=== PATIENT | female | born 1990 | race Caucasian/White ===

== ENCOUNTER 2025-05-19 11:26 | Emergency (ER) | payer OTHER, SELFPAY ==
[2025-05-19 11:38] VITALS: BP 118/75; PULSE 84; RESP 18; TEMP 36.4; O2SAT 99
--- NOTE | 2025-05-19 11:52 | ED.EAR ---
HPI - Ear Problem General Chief complaint: Ear Stated complaint: right ear pain Time Seen by Provider: 05/19/25 11:29 Source: patient Mode of arrival: ambulatory Limitations: no limitations History of Present Illness HPI Narrative: Maura is a 34-year-old female patient presenting to the clinic today with complaints of bilateral ear pain right greater than left x1 month. Does have some nasal congestion that started this morning. Denies any fevers, chills, body aches. States has a sharp pain in her right ear intermittently. Reports intermittent dizziness. Not currently feeling dizzy. Denies any drainage coming from the ear or any recent swimming. No headaches or visual changes. Denies any ringing in her ears. Related Data Home Medications ?Medication ?Instructions ?Recorded ?Confirmed ?Last Taken ?Type drospirenone 3 mg-ethinyl 1 tablet PO DAILY 05/19/25 Unknown History estradiol 0.02 mg tablet (BRENNAN (28)) naproxen 500 mg tablet (Naprosyn) 250 mg PO DAILY 05/19/25 Unknown History Allergies Allergy/AdvReac Type Severity Reaction Status Date / Time bingham AdvReac Mild Headache Verified 05/19/25 11:39 Review of Systems Review of Systems: Pertinent positives per HPI. Patient denies any fever, chills, rash, headache, visual changes, cough, runny nose, sore throat, shortness of breath, chest pain, palpitations, nausea, vomiting, diarrhea, constipation, abdominal pain, or any urinary issues. PMFSH Comments At the time of my signature, I reviewed and agree with the nursing past medical, surgical, social, and family history. There is no relevant family history pertinent to the patient complaint. Exam Narrative: General: Well-developed, well nourished, in no apparent distress Head: Normocephalic, atraumatic Eyes: Pupils equally round and reactive to light bilaterally, EOM intact, sclera and conjunctive clear, no discharge, lids normal, without nystagmus Ears: TMs intact and mildly congested, very scant amount of cerumen otherwise ear canals clear, no drainage, grossly hearing normal. Nose: Nares patent, clear discharge, no inflammation, no sinus tenderness. Mouth: Oropharynx without lesions or masses, good dentition, MMM. Neck: Supple, trachea midline, no enlargement of anterior or posterior cervical nodes, no thyroid masses or goiter palpable. Cardio: Regular rate and rhythm, s1 and s2 normal, no murmur appreciated. Resp: Clear to auscultation bilaterally anteriorly and posteriorly, no rhonchi, rales, wheezing or rubs Course Course Emergency Course: Portions of this record may have been created with voice recognition software. Level of Care: Express Care Visit Vital Signs Vital signs: Vital Signs Temperature 36.4 C 05/19/25 11:38 Pulse Rate 84 05/19/25 11:38 Respiratory Rate 18 05/19/25 11:38 Blood Pressure 118/75 05/19/25 11:38 Pulse Oximetry 99 05/19/25 11:38 Oxygen Delivery Room Air 05/19/25 11:38 Temperature 36.4 C 05/19/25 11:38 Pulse Rate 84 05/19/25 11:38 Respiratory Rate 18 05/19/25 11:38 Blood Pressure 118/75 05/19/25 11:38 Pulse Oximetry 99 05/19/25 11:38 Oxygen Delivery Room Air 05/19/25 11:38 Vital signs reviewed Medical Decision Making MDM Narrative Medical decision making narrative: At the time of visit patient is resting comfortably on the exam table. Patient appears to be nontoxic. Complaints of bilateral ear pain right greater than left x1 month. Does have some nasal congestion that started this morning. Denies any fevers, chills, body aches. States has a sharp pain in her right ear intermittently. Reports intermittent dizziness. Not currently feeling dizzy. Denies any drainage coming from the ear or any recent swimming. No headaches or visual changes. Denies any ringing in her ears. On exam patient has slight scant amount of cerumen and bilateral ear canals otherwise clear, no drainage, TMs intact with mild congestion without bulging. No nystagmus on exam Plan: I suspect patient has otalgia with mild ear congestion. Recommend trying Flonase and iije-oyz-bqxltoy antihistamine such as Zyrtec or Claritin daily for congestion. Supportive measures were discussed with the patient and they voiced understanding discharge instructions and agrees to treatment plan. Return precautions reviewed Differential Diagnosis Differential Diagnosis: Otitis media, otitis externa, eustachian tube dysfunction, Meniere's disease, BPPV, URI, sinusitis, cerumen impaction Vital Signs Vital Signs: Vital Signs Temperature 36.4 C 05/19/25 11:38 Pulse Rate 84 05/19/25 11:38 Respiratory Rate 18 05/19/25 11:38 Blood Pressure 118/75 05/19/25 11:38 Pulse Oximetry 99 05/19/25 11:38 Oxygen Delivery Room Air 05/19/25 11:38 Temperature 36.4 C 05/19/25 11:38 Pulse Rate 84 05/19/25 11:38 Respiratory Rate 18 05/19/25 11:38 Blood Pressure 118/75 05/19/25 11:38 Pulse Oximetry 99 05/19/25 11:38 Oxygen Delivery Room Air 05/19/25 11:38 Discharge Plan Discharge Clinical Impression: Otalgia of right ear, Congestion of both ears Patient Disposition: Home Condition: Stable Instructions: Antibiotic Form, Earache (ED) Additional Instructions: Take any prescribed medications only as directed, May take Flonase 1 spray in each naris daily May use [id number]-[id number] antihistamine such as Zyrtec or Claritin. Tylenol/motrin as needed for pain May use heating pad over the right ear to help alleviate pain If you get recurrent ear infections it may be warranted to follow up with ENT. Follow up with your PCP in 3-5 days if symptoms persist. Patient Language: Chinese Prescriptions: No Action drospirenone-ethinyl estradiol [BRENNAN (28)] 3-0.02 mg tablet 1 tablet PO DAILY naproxen [Naprosyn] 500 mg tablet 250 mg PO DAILY Follow-up/Referrals: Justus,Charlene Phillips MD [Primary Care Provider, Unknown] Time of Disposition: 11:51 Quality NIHSS Nursing Documentation ED NIHSS nursing documentation: reviewed/agree
--- OUTSIDE RECORDS SUMMARY | 2025-05-19 12:04 | XMS_ITS | Clinical Summary ---
Author Organization [facility] Address [address] [place] [id number] Care Team Providers Care Order Control Clerk Blood Bank Name Role Phone Unavailable Primary Care Provider Unavailabl e Allergies Active Allergy Reactions Criticality Noted Date Comments Mei Flavoring Agent (Non-Screening) Headache 11/14/2017 Medications vitamin, low iron, ( VITAMIN WITH IRON) 27-0.8 MG tablet Take 1 tablet by mouth daily. Active Social History Tobacco Use Types Packs/Day Years Used Date Smoking Tobacco: Never Alcohol Use Standard Drinks/Week Comments No 0 (1 standard drink = 0.6 oz pur e alcohol) Comments No Sex and Gender Information Value Date Recorded Sex Assigned at Not on file Legal Sex Female 7:40 PM CDT Gender Identity Not on file Sexual Orientation Not on file Last Filed Vital Signs Vital Sign Reading Time Taken Comments Blood Pressure 129/84 12/05/2017 7:47 AM CDT Pulse 88 12/05/2017 7:47 AM CDT Temperature 36.4 C (97.6 F) 12/05/2017 7:47 AM CDT Respiratory Rate 18 12/05/2017 7:47 AM CDT Oxygen Saturation 98% 12/05/2017 7:47 AM CDT Inhaled Oxygen Concentration - - Weight 86.2 kg (190 lb) 12/03/2017 12:04 PM CDT Height 162.6 cm (5' 4) 12/03/2017 12:04 PM CDT Body Mass Index 32.61 12/03/2017 12:04 PM CDT Plan of Treatment Upcoming Encounters Date Type Department Care Team (Late st Contact Info) Description 08/02/2025 1:20 PM DINING ROOM [facility] Office Visit [facility] Family [facility] - [place] [address] [place] [id number] Charlene Jerome MD [address] [place] [id number] Health Maintenance Due Date Last Done Comments Cervical Cancer Screening Pa p Smear (Age 30 to 64) Every 3 Years 1989 Annual Physical 1992 Hepatitis C 12/25/2007 DTaP, Tdap and Td Vaccines ( 1 - Tdap) 2008 Hepatitis B Vaccines (1 of 3 - 19+ 3-dose series) 2008 HPV Vaccines (1 - 3-dose SCD M series) 2016 Cervical Cancer Screening Pa p with HPV Testing (Age 30 to 64) Every 5 Years 12/25/2019 Cervical Cancer Screening with HPV 12/25/2019 COVID-19 Vaccine ( - 2023-2 5 season) 2025 Meningococcal B Vaccine Aged Out No l onger eligible based on patient's age to complete this topic Meningococcal Vaccine Aged Out No soto parvin eligible based on patient's age to complete this topic Pneumococcal Vaccine: Pediat rics (0 to 5 Years) and At-Risk Patients (6 to 49 Years) Aged Out No longer eligible b ased on patient's age to complete this topic RSV Immunizations Under 20 Months Aged Out No longer eligible based on patient's age to complete this topic Insurance [facility]
--- OUTSIDE RECORDS SUMMARY | 2025-05-19 12:04 | XMS_ITS | Encounter Summary ---
Author Organization [facility] Address [address] [place] [id number] Care Team Providers Care Jackscrew Man Name Role Phone Unavailable Primary Care Provider Unavailabl e Encounter Details Date Type Department Care Team (Late Contact Info) Description 12/13/2017 Hospital Follow-up Call [facility] [place], [place] [id number] Dalia Bourne RN Social History Tobacco Use Types Packs/Day Years Used Date Smoking Tobacco: Never Alcohol Use Standard Drinks/Week Comments No 0 (1 standard drink = 0.6 oz pur e alcohol) Comments No Sex and Gender Information Value Date Recorded Sex Assigned at Not on file Legal Sex Female 7:40 PM CDT Gender Identity Not on file Sexual Orientation Not on file documented as of this encounter Plan of Treatment Upcoming Encounters Date Type Department Care Team (Late Contact Info) Description 08/02/2025 1:20 PM [place] Office Visit [facility] Family Medicine - [place] [address] [facility] [address] [place] [phone] Charlene Jerome MD [address] [place] [phone] documented as of this encounter Visit Diagnoses Not on filedocumented in this encounter
== END 2025-05-19 11:54 | disposition home or self-care (01) ==
PROVIDERS: Emergency Provider Nurse Practitioner Family; PCP Student in an Organized Health Care Education/Training Program
DX: H83.8X3 Other specified diseases of inner ear, bilateral (principal); H92.01 Otalgia, right ear
CPT/HCPCS: 99203; G0463